=== PATIENT | male | born 1955 | race Caucasian/White ===

== ENCOUNTER 2018-10-20 09:50 | Inpatient (IN) | payer BC, SELFPAY ==
[~2018-10-20] VITALS: Ht 190.5 cm; Wt 146.5 kg
[2018-10-20] VITALS (9 sets, daily range): BP systolic 102–123; BP diastolic 61–79
[~2018-10-20 09:50] MED LIST: ALBU8.5H6 INH; ALLO300T PO; CHOL10003 PO; FERR325T14 PO; FLUT9.9S NS; HYDR-2761 PO; LISI-130 PO; METO25TA2 PO; MULT1TAB13 PO; NAPR-514 PO; OXYC1TAB15 PO; OXYC1TAB22 PO; WARF-31 PO; WARF-78 PO
[2018-10-20] MEDS ORDERED: LISI1TAB5 PO (10:50)
[2018-10-20] MEDS ORDERED: dilTIAZem IV PUSH 25 MG/5 ML VIAL IVP ONE (11:15)
[2018-10-20] MEDS ORDERED: dilTIAZem INJ 125 MG in IV DEXTROSE 5% 100ML 100 ML IV ONE (11:15)
[2018-10-20] MEDS ORDERED: ANTI-COAG MONITOR BY PHARMACY. MC PRN (11:30)
[2018-10-20 11:57] LABS: BASO # 0.1 x10^3/uL (0.0-0.2); BASO % 1 % (0-3); EOS # 0.1 x10^3/uL (0.0-0.7); EOS % 1 % (0-3); HEMATOCRIT 42.3 % (39.0-53.0); HEMOGLOBIN 14.8 g/dL (13.0-17.5); LYMPH # 1.8 x10^3/uL (1.0-4.8); LYMPH % 19 % (24-48); MEAN CORPUSCULAR HEMOGLOBIN 30 pg (25-35); MEAN CORPUSCULAR HGB CONC 35 g/dL (31-37); MEAN CORPUSCULAR VOLUME 86 fL (79-100); MONO # 0.8 x10^3/uL (0.0-1.1); MONO % 9 % (0-9); NEUT # 6.7 x10^3uL (1.8-7.7); NEUT % 70 % (31-73); PLATELET COUNT 325 x10^3/uL (140-400); RED BLOOD COUNT 4.91 x10^6/uL (4.30-5.70); RED CELL DISTRIBUTION WIDTH 13.6 % (11.5-14.5); WHITE BLOOD COUNT 9.6 x10^3/uL (4.0-11.0)
[2018-10-20 12:18] LABS: CALCIUM 9.9 mg/dL (8.5-10.1); POTASSIUM 4.8 mmol/L (3.5-5.1)
[2018-10-20] MEDS: APIXABAN 5 MG TABLET. PO SCH ×2 (13:07→20:47)
--- NOTE | 2018-10-20 14:01 | CARD ---
MR#: [id number] Date of Study: 10/20/2018 Ordering Physician: MIKEL PAYAN, Referring Physician: MIKEL PAYAN, Tech: Mary Lou Lacey APPROVED REPORT EXAM: Two-dimensional and M-mode echocardiogram with Doppler and color Doppler. Other Information Quality : AverageHR: 110bpm INDICATION Atrial Fibrillation Asthma RISK FACTORS Hypertension 2D DIMENSIONS RVDd3.4 (2.9-3.5cm)Left Atrium(2D)4.2 (1.6-4.0cm) IVSd1.4 (0.7-1.1cm)Aortic Root(2D)3.4 (2.0-3.7cm) LVDd4.8 (3.9-5.9cm)LVOT Diameter2.4 (1.8-2.4cm) PWd1.1 (0.7-1.1cm)LVDs3.0 (2.5-4.0cm) FS (%) 37.2 %SV72.0 ml LVEF(%)67.1 (>50%) Aortic Valve AoV Peak Bjorn.129.9cm/sAoV VTI18.0cm AO Peak GR.6.7mmHgLVOT Peak Bjorn.87.8cm/s LVOT VTI 14.10cmAO Mean GR.4mmHg MAKSIM (VMAX)2.79ax0MQY (VTI)3.63cm2 Mitral Valve MV E Szffsrwl08.2cm/sMV DECEL ZOCU201wp MV A Xmhpymoa04.0cm/sMV JZV94dr E/A Ratio2.4MVA (PHT)4.99cm2 TDI E/Lateral E'5.3E/Medial E'5.8 Pulmonary Valve PV Peak Bujjzilt06.7cm/sPV Peak Grad.3mmHg Tricuspid Valve TR P. Zqpqqvjn203dt/sRAP BWOCGECL9rpEi TR Peak Gr.00dbWeDKDN56ekIk Pulmonary Vein S1 Yrqhcpyl71.0cm/sD2 Maouudtu11.9cm/s PVa kxeomwct157jgte LEFT VENTRICLE The left ventricle is normal size. There is mild to moderate concentric left ventricular hypertrophy. The left ventricular systolic function is normal. The Ejection Fraction is 60%. There is normal LV s egmental wall motion. The left ventricular diastolic function and filling is normal for age. RIGHT VENTRICLE The right ventricle is normal size. There is normal right ventricular wall thickness. The right ventr icular systolic function is normal. ATRIA The left atrium is borderline dilated. The right atrium is mildly dilated. The interatrial septum is intact with no evidence for an atrial septal defect or patent foramen ovale as noted on 2-D or Dopple r imaging. AORTIC VALVE The aortic valve is normal in structure and function. Doppler and Color Flow revealed no significant aortic regurgitation. There is no significant aortic valvular stenosis. MITRAL VALVE The mitral valve is normal in structure and function. There is no evidence of mitral valve prolapse. There is no mitral valve stenosis. Doppler and Color-flow revealed trace mitral regurgitation. TRICUSPID VALVE The tricuspid valve is normal in structure and function. Doppler and Color Flow revealed trace tricus pid regurgitation with an estimated PAP of 28 mmHg. There is no tricuspid valve stenosis. PULMONIC VALVE The pulmonic valve is not well visualized. Doppler and Color Flow revealed trace pulmonic valvular re gurgitation. GREAT VESSELS The aortic root is normal in size. The IVC is normal in size and collapses >50% with inspiration. PERICARDIAL EFFUSION There is no evidence of significant pericardial effusion. Critical Notification Critical Value: No <Conclusion> The left ventricular systolic function is normal. The Ejection Fraction is 60%. There is normal LV segmental wall motion. Trace mitral regurgitation. Trace tricuspid regurgitation with an estimated PAP of 28 mmHg. There is no evidence of significant pericardial effusion. Signed by : Mikel Payan, Electronically Approved : 10/20/2018 14:00:33
--- NOTE | 2018-10-20 15:52 | PDOC ---
ROMAINE ADAIR APRN 10/20/18 1552: Provider Note Provider Note Please seen office noted in physical chart for further details HPI This is a 63 yo male who was was seen by Dr. Payan in office today as a refer ral for new AFIB. Was noted to be in AFIB with RVR and was admitted to the hospital for further workup and treatment. Patient dad been experiencing some occasional fatigue and dizziness upon standing and noted that his heart rate would frequently fluctuate on his Fit Bit. Primary care provider conducted EKG last week and noted patient to be in AFIB. Was initiated on metoprolol and Eliquis for stroke prevention. Patient denies ay shortness or breath, palpitations, chest pain, diaphoresis, LE edema, or nausea/vomiting. No recent illness or fevers. Assessment 1. AFIB with RVR 2. Hypertension 3. Valvular insufficiency; rheumatic fever as a child. Recommendations Routine labs Cardizem gtt. Titrate for HR control Resume Eliquis Hold Toprol and Norvasc for now Echo to assess LV systolic function Ischemic workup with stress test Outpatient cardioversion following 4 weeks of anticoagulation therapy. Further recommendations pending above MIKEL PAYAN MD 10/20/18 1641: Provider Note Provider Note Patient seen and examined. Agree with SINGEING TORCH OPERATOR's assessment and plan. Please see my office note from earlier today for full H&P Continue to titrate Cardizem drip for better rate control and change to by mouth tomorrow Continue eliquis for stroke prophylaxis 2-D echo showed normal LV systolic function Plan for outpatient cardioversion in 3-4 weeks We will also schedule patient for outpatient Lexiscan nuclear stress test and sleep study Possible discharge home tomorrow ROMAINE ADAIR APRN October 20, 2018 15:52 MIKEL PAYAN MD October 20, 2018 16:41
--- NOTE | 2018-10-20 20:48 | NUR ---
Patient is new admit today prior to shift change. Patient reports he had a dose of Eliquis this morning prior to coming to hospital today. Day shift RN gave dose of Eliquis on admit to hospital. Patient has had 2 doses of Eliquis today already so I did not administer 2100 dose of Eliquis this evening. Next dose of Eliquis scheduled bid is 10/21 0900.
[2018-10-20] MEDS: dilTIAZem INJ 125 MG in IV DEXTROSE 5% 100ML 100 ML IV PRN (23:10)
[2018-10-21] VITALS (20 sets, daily range): BP systolic 105–145; BP diastolic 67–88
[2018-10-21] MEDS: APIXABAN 5 MG TABLET. PO SCH (08:49)
[2018-10-21] MEDS: dilTIAZem INJ 125 MG in IV DEXTROSE 5% 100ML 100 ML IV PRN (11:32)
--- NOTE | 2018-10-21 12:16 | PDOC ---
CARDIO Progress Notes Date and Time Date of Service 10/21/18 Time of Evaluation 1051 Subjective Subjective: No Chest Pain, No shortness of breath, No Palpitations Vitals Vitals Vital Signs Date Time Temp Pulse Resp B/P (MAP) Pulse Ox O2 Delivery O2 Flow Rate FiO2 10/21/18 11:00 98.0 88 18 124/70 (88) 97 Room Air 98.0 Weight Weight [ ] Input and Output Intake and Output Intake and Output 10/21/18 06:59 Intake Total 925 ml Balance 925 ml Intake Oral 800 ml IV Total 125 ml # Voids 2 Laboratory Labs Laboratory Tests Test 10/20/18 17:15 10/20/18 21:15 Troponin I Quantitative < 0.017 ng/mL (0.000-0.055) < 0.017 ng/mL (0.000-0.055) Physical Exam HEENT: Neck Supple W Full Motion Chest: Symmetric LUNGS: Clear to Auscultation Heart: S1S2, irregularly irregular Abdomen: Soft N/T Extremities: No Edema Neurology: alert, oriented Assessment Assessment 1. AFIB with RVR; rate better controlled with Cardizem gtt. Echo with preserved LV systolic function 2. Hypertension; controlled Recommendations Covert Cardizem to oral Eliquis for stroke prevention Will arrange for outpatient stress test and sleep study Outpatient cardioversion in 3-4 weeks Monitor rhythm; if remains controlled, consider discharge later this evening ROMAINE ADAIR APRN October 21, 2018 12:16
--- NOTE | 2018-10-21 15:46 | NUR ---
SS following up with discharge planning. SS reviewed pt chart. Pt is from home with spouse and is currently on room air. No discharge needs noted at this time. SS will continue to follow for discharge planning.
[2018-10-21] MEDS ORDERED: APIX5TAB PO (16:03)
[2018-10-21] MEDS ORDERED: DILT300C24 PO (16:03)
--- NOTE | 2018-10-21 16:06 | DISCH ---
DISCHARGE INSTRUCTIONS Condition on Discharge Condition on Discharge: Stable Activity After Discharge Activity Instructions for Disc: Activity as tolerated Weight Bearing Status after Di: No restrictions Diet after Discharge Diet after Discharge: Cardiac Checks after Discharge Checks after discharge: Check blood press - daily Contacting the DRSaniya after DC Call your doctor for: Concerns you may have Treatment/Equipment after DC Adaptive Equipment Issued: None ROMAINE ADAIR APRN October 21, 2018 16:06
[2018-10-21 16:13] LABS: CHOLESTEROL/HDL RATIO 5.6
--- NOTE | 2018-10-21 16:15 | PDOC3 ---
Discharge Summary Visit Information Date of Admission: October 20, 2018 Date of Discharge: October 21, 2018 Admitting Diagnosis Comment: AFIB with RVR Hypertension Final Diagnosis AFIB with RVR Hypertension Brief Hospital Course Allergies Allergies Coded Allergies Type Severity Reaction Last Updated Verified No Known Drug Allergies 05/11/15 No Vital Signs Vital Signs Date Time Temp Pulse Resp B/P (MAP) Pulse Ox O2 Delivery O2 Flow Rate FiO2 10/21/18 15:00 97.8 87 14 116/76 (89) 97 Room Air 97.8 Lab Results Laboratory Tests Test 10/20/18 11:40 10/20/18 17:15 10/20/18 21:15 White Blood Count 9.6 x10^3/uL (4.0-11.0) Red Blood Count 4.91 x10^6/uL (4.30-5.70) Hemoglobin 14.8 g/dL (13.0-17.5) Hematocrit 42.3 % (39.0-53.0) Mean Corpuscular Volume 86 fL (79-100) Mean Corpuscular Hemoglobin 30 pg (25-35) Mean Corpuscular Hemoglobin Concent 35 g/dL (31-37) Red Cell Distribution Width 13.6 % (11.5-14.5) Platelet Count 325 x10^3/uL (140-400) Neutrophils (%) (Auto) 70 % (31-73) Lymphocytes (%) (Auto) 19 % (24-48) Monocytes (%) (Auto) 9 % (0-9) Eosinophils (%) (Auto) 1 % (0-3) Basophils (%) (Auto) 1 % (0-3) Neutrophils # (Auto) 6.7 x10^3uL (1.8-7.7) Lymphocytes # (Auto) 1.8 x10^3/uL (1.0-4.8) Monocytes # (Auto) 0.8 x10^3/uL (0.0-1.1) Eosinophils # (Auto) 0.1 x10^3/uL (0.0-0.7) Basophils # (Auto) 0.1 x10^3/uL (0.0-0.2) Sodium Level 143 mmol/L (136-145) Potassium Level 4.8 mmol/L (3.5-5.1) Chloride Level 104 mmol/L (98-107) Carbon Dioxide Level 28 mmol/L (21-32) Anion Gap 11 (6-14) Blood Urea Nitrogen 16 mg/dL (8-26) Creatinine 1.0 mg/dL (0.7-1.3) Estimated GFR (Cockcroft-Gault) 76.0 Glucose Level 112 mg/dL (70-99) Calcium Level 9.9 mg/dL (8.5-10.1) Troponin I Quantitative < 0.017 ng/mL (0.000-0.055) < 0.017 ng/mL (0.000-0.055) < 0.017 ng/mL (0.000-0.055) Thyroid Stimulating Hormone (TSH) 0.950 uIU/mL (0.358-3.74) Laboratory Tests Test 10/20/18 17:15 10/20/18 21:15 Troponin I Quantitative < 0.017 ng/mL (0.000-0.055) < 0.017 ng/mL (0.000-0.055) Brief Hospital Course Mr. Guevara is a 63 old male who presented with secondary to AFIB with RVR. Patient reported occasional fatigue and dizziness upon standing and noted that his heart rate would frequently fluctuate on his Fit Bit. Primary care provider conducted EKG last week and noted patient to be in AFIB. Was initiated on metoprolol and Eliquis for stroke prevention. Was seen in clinic by Dr. Payan yesterday as a referral for new onset AFIB. Was noted to be in AFIB with RVR and was admitted to the hospital for further workup and treatment. Cardizem gtt was initiated for heart rate control. Eliquis resumed for stroke prevention. Echocardiogram showed preserved LV systolic function with an EF of 60%. No wall motion abnormalities or significant valvular insufficiency. Patient's rate has been controlled and was converted to oral Cardizem. Outpatient stress test and sleep study has been arranged. Will plan for outpatient cardioversion in 3-4 weeks. Will discharge home on Eliquis 5mg BID and Cardizem CD 300mg daily. Patient seen and examined. Agree with above nurse practitioner note. Plan for outpatient cardioversion. Supportive care. Doing well overall. Heart rate well- controlled. Discharge Information Condition at Discharge: Improved Follow Up: Weeks (4) Disposition/Orders: D/C to Home Scheduled Albuterol Sulfate (Albuterol Sulfate Hfa Inhaler) 8.5 Gm Hfa.aer.ad, 2 PUFF INH Q4HRS for FOR ASTHMA, Ref 0 (Reported) Not given this hospitalization. May resume at home as ordered by doctor. Entered as Reported by: ONIEL BLAIR on 01/09/15618 Last Action: Reviewed on 10/20/18 105 by MARTINA BOWSER RN Allopurinol (Allopurinol) 300 Mg Tablet, 1 TAB PO DAILY for gout, #30 Ref 5 (Reported) LAST DOSE GIVEN: DATE: 05/11 TIME: 9 am NEXT DOSE DUE: DATE: 05/12 TIME: 9 am Entered as Reported by: ONIEL BLAIR on 01/09/15618 Last Action: Reviewed on 10/20/18 105 by MARTINA BOWSER RN Apixaban (Eliquis) 5 Mg Tablet, 5 MG PO BID for AFIB for 30 Days, #60 Ref 2 Prescribed by: ROMAINE ADAIR APRN on 10/21/18 1603 Diltiazem HCl (Diltiazem 24Hr ER (Cd)) 300 Mg Cap.er.24h, 300 MG PO DAILY for AFIB for 30 Days, #30 Ref 2 Prescribed by: ROMAINE ADAIR APRN on 10/21/18 1603 Multivitamin W-Minerals/Lutein (Centrum Silver Ultra Men's Tab) 1 Each Tablet, 1 EACH PO DAILY, (Reported) LAST DOSE GIVEN: DATE: 05/11 TIME: 9 AM NEXT DOSE DUE: DATE: 05/12 TIME: 9 AM Entered as Reported by: CATHERINE ROPER on 04/16/15 1132 Last Action: Reviewed on 10/20/18 105 by MARTINA BOWSER RN Miscellaneous Medications Cholecalciferol (Vitamin D3) (Vitamin D3) 1,000 Unit Tablet, 2,000 UNIT PO, (Reported) LAST DOSE GIVEN: DATE: 05/11 TIME: BEFORE DISCHARGE NEXT DOSE DUE: DATE: 05/12 TIME: MORNING Entered as Reported by: CATHERINE ROPER on 04/16/15 1131 Last Action: Reviewed on 10/20/18 105 by MARTINA BOWSER RN Discontinued Medications Lisinopril/Hydrochlorothiazide (Lisinopril-Hctz 20-12.5 Mg Tab) 1 Each Tablet, 1 TAB PO DAILY for HTN, #30 Ref 5 (Reported) Entered as Reported by: MRATINA BOWSER RN on 10/20/18 1050 Last Taken: Unknown Dose on 10/20/18 0700 Last Action: Reviewed on 10/20/18 1056 by RADHA DE LEON EMILY APRN October 21, 2018 16:15 JADA KOVACS MD October 21, 2018 17:15
--- NOTE | 2018-10-21 17:20 | NUR ---
Discharge Note: VICTORIANO MONTEIRO [place] Discharge instructions and discharge home medications reviewed with Patient and a copy given. All questions have been answered and understanding verbalized. Follow up appointments and instructions given to patient. The following instructions and handouts were given: Atrial fibrillation and Diltiazem Discontinued lines and drains: Peripheral IV intact. Patient discharged to Home with Spouse via Ambulated
== END 2018-10-21 17:20 | disposition home or self-care (01) | DRG 310 ==
LOC: 2 NORTH 10:00
PROVIDERS: ADMIT Internal Medicine Cardiovascular Disease; ATTEND Internal Medicine Cardiovascular Disease
DX: I48.91 Unspecified atrial fibrillation (principal); I10 Essential (primary) hypertension; Z79.899 Other long term (current) drug therapy; I09.1 Rheumatic diseases of endocardium, valve unspecified
CPT/HCPCS: 36415; 80048; 80061; 84443; 84484; 85025; 93306; J3490

== ENCOUNTER 2018-11-11 06:01 | Day surgery (SDC) | payer BC ==
[~2018-11-11 06:01] MED LIST changes: +APIX5TAB PO; +DILT300C24 PO; +LISI1TAB5 PO
--- NOTE | 2018-11-11 06:32 | EKG ---
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
[2018-11-11] MEDS ORDERED: IV RINGERS,LACTATED 1000ML 1,000 ML IV SCH ×2 (07:00)
[2018-11-11] MEDS ORDERED: fentaNYL PF VIAL 100 MCG/2 ML VIAL IV PRN ×4 (07:00)
[2018-11-11] MEDS ORDERED: LIDOCAINE 1% PF 2 ML VIAL. ID PRN ×2 (07:00)
[2018-11-11] MEDS ORDERED: MORPHINE SULFATE 2 MG/ML VIAL. IV PRN ×2 (07:00)
[2018-11-11] MEDS ORDERED: HYDROmorphone 2 MG/ML VIAL IV PRN ×2 (07:00)
[2018-11-11] MEDS ORDERED: PROCHLORPERAZINE 10 MG/2 ML VIAL. IV PRN ×2 (07:00)
[2018-11-11] MEDS ORDERED: ONDANSETRON PF 4 MG/2 ML VIAL. IV PRN ×2 (07:00)
[2018-11-11] MEDS ORDERED: PROPOFOL 20 ML IV ONE (07:22)
--- NOTE | 2018-11-11 08:05 | EKG ---
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
[2018-11-11 08:45] VITALS: BP 120/95
--- NOTE | 2018-11-11 09:18 | PDOC4 ---
PROCEDURE Procedure CARDIOVERSION: DETAILS: 63-year-old man presented to the hospital for a planned outpatient cardioversion. He was seen in the office approximately 4 weeks ago and he was started on anticoagulation. Currently denies any chest pain symptoms. Risks, benefits and alternatives were discussed with the patient and informed consent was obtained. Procedural details: The patient was sedated with anesthesia and propofol was administered. See anesthesia notes for full details. A synchronized cardioversion was performed with 360 J and the patient converted to sinus rhythm. Postconversion the heart rate was in the 90s. The patient tolerated the procedure well and awoke from anesthesia without any complications. Patient and family updated post- procedurally. He was discharged in stable condition. He has follow-up in our office in 4 weeks. Continue anticoagulation. CONCLUSION: 1. Successful cardioversion to SR. JADA KOVACS MD Nov 11, 2018 09:18
== END 2018-11-11 09:01 | disposition home or self-care (01) ==
LOC: SURG 06:01
PROVIDERS: ATTEND Internal Medicine Cardiovascular Disease
DX: I48.91 Unspecified atrial fibrillation (principal)
CPT/HCPCS: 92960; 93005; J2704

== ENCOUNTER → 2018-11-15 | Outpatient (CLI) | payer BC ==
[2018-11-11 08:45] VITALS: BP 120/95
[~2018-11-15] MED LIST changes: +REGADENOSON 0.4 MG/5 ML DISP.SYRIN. IV ONE
--- NOTE | 2018-11-16 11:43 | RAD ---
MR#: [id number] Date of Study: 11/16/2018 Ordering Physician: MIKEL DUVALL, Referring Physician: ROEL ZULETA Tech: TONY Olivas, ROSIE (R) (N) APPROVED REPORT Test Type: Exercise Stress Nurse/Tech: Eugenia Bryan RN Test Indications: A-fib Cardiac History: Hypertension Medications: See Electronic Medical Record Medical History: See Electronic Medical Record Resting ECG: A-fib Resting Heart Rate: 91 bpm Resting Blood Pressure: 144/86mmHg Pretest Chest Pain: No chest pain Nurse/Tech Notes S1,S2 and lungs clear to auscultation. Consent: The procedure was explained to the patient in lay terms. Informed consent was witnessed. Guy eout was entered into [employer]. History and Stress Test performed by RT Elaine (R) (N) Stress Symptoms Dyspnea,Fatigue,diaphoretic POST EXERCISE Reason for Termination: Reached target heart rate Target HR: Yes Max HR: 189 bpm 140% of Maximum Predicted HR: 135 bpm Exercise duration: 5:38 min:sec, 2 Stage Exercise capacity: 7.0METs Max Blood Pressure: 146/78mmHg Blood Pressure response to exercise: Normal blood pressure response during stress. Heart Rate response to exercise: WNL Chest Pain: No. Arrhythmia: No. ST Change: Yes. non-specific st depression INTERPRETATION Stress EKG Conclusion: Non-specific ST/T changes. No significant ischemia noted. Imaging Protocol IMAGE PROTOCOL: Rest Tc-99m/stress Tc-99m 2 days Rest: Stress: Viability: Radiopharm.Tc99m RaddknkkwJp38a Sestamibi Yake01vAh 37mCi Img Date 11/15/2018 11/16/2018 Inj-Img Dlvd02mzd. 60min. Rest Admin Site:IV - Left HandAdministrator:TONY Olivas, ROSIE (R)(N) Stress Admin Site: IV - Right HandAdministrator: RT Kalani Henry)(N) STRESS DATA End Diast. Vol.70.0mlLVEDV index BSA27.0ml End Syst. Vol.24.0mlLVESV index BSA9.0ml Myocardial Xsro012.0gEject. Jwfmohlj67.0% Stress Scores Regional WT1.00Summed WT7.00 Regional WM0.00Summed WM3.00 The rest and stress images show normal perfusion, normal contraction and thickening. LV Perf. Quant 17 Seg. SSS0.00 17 Seg. SRS0.00 17 Seg. SDS0.00 Stress Defect Extent (% LAD)0.00Rest Defect Extent (% LAD)0.00Rev. Defect Extent (% LAD)0.00 Stress Defect Extent (% LCX) 0.00Rest Defect Extent (% LCX)0.00Rev. Defect Extent (% LCX)0.00 Stress Defect Extent (% RCA)0.00Rest Defect Extent (% RCA)0.00Rev. Defect Extent (% RCA)0.00 Stress Defect Extent (% REY)0.00Rest Defect Extent (% REY)0.00Rev. Defect Extent (% REY)0.00 Other Information Quality:Fair Risk Assessment: Low Risk Conclusion 1. No evidence of EKG changes with stress testing. 2. Normal perfusion at stress/rest. There is likely a subdiaphragmatic attenuation artifact noted but cannot rule out prior inferior infarct. Based on normal wall motion and lack of any significant Q wa ves on EKG, this is most consistent with an artifact. 3. Low risk study. 4. EF > 60%. Signed by : Jaun Srinivasan, Electronically Approved : 11/16/2018 11:43:11
== END | disposition home or self-care (01) ==
LOC: NM 07:47
PROVIDERS: ATTEND Internal Medicine Cardiovascular Disease
DX: I21.3 ST elevation (STEMI) myocardial infarction of unspecified site (principal); I48.91 Unspecified atrial fibrillation; I10 Essential (primary) hypertension; R06.00 Dyspnea, unspecified; R53.83 Other fatigue; R61 Generalized hyperhidrosis
CPT/HCPCS: 78452; A9500; 93017; 96376

== ENCOUNTER → 2018-12-21 | Outpatient (CLI) | payer BC ==
[~2018-12-21] MED LIST changes: -REGADENOSON 0.4 MG/5 ML DISP.SYRIN. IV ONE
--- NOTE | 2018-12-22 12:24 | SLEEP ---
DATE OF STUDY: 12/21/2018 ATTENDING PHYSICIAN: Dr. Manjeet Smart. REFERRING PHYSICIAN: Dr. Damian Fry. HISTORY: The patient is 63 years old who weighs 310 pounds with a BMI of 39. The patient's [place] score was 8. The patient underwent split night study performed at [facility]. During the night study, the patient spent 432 minutes in bed and slept for 326 minutes with a sleep efficiency of 75%. Sleep latency was 9 minutes with a REM latency of 77 minutes. Overall, sleep architecture showed increased stage 1 sleep, normal stage 2 sleep, normal slow wave and increased REM sleep, which was 30% of total sleep time. During the initial diagnostic portion of the study, the patient slept for 136 minutes. During that time, there were 83 obstructive apneas, 25 mixed apneas, no central apneas and 46 hypopneas. The patient's apnea-hypopnea index was 68 per hour with a REM index of 62 per hour. Supine sleep was not observed. EKG monitoring revealed average heart rate of 80 beats per minute, no sustained arrhythmias observed. Nocturnal oximetry study revealed a mean oxygen saturation of 92% with the lowest of 63%, 25% of time oxygen saturation remained between 80% and 89% and 17% of time between 70% and 79%. PLMs were seen at index of 38 per hour and 3 per hour caused EEG arousals. The patient met the criteria for CPAP initiation. He was started at 7 cm water and titrated up to 12 cm water. At the final pressure, the patient slept for 144 minutes. The patient had long REM sleep and lateral sleep. No supine sleep. The patient's AHI was reduced to 2 per hour and oxygen saturations remained above 90% with one spot desaturation of 87%. The patient used a medium size full face mask. IMPRESSION: 1. Severe sleep apnea-hypopnea syndrome at an AHI of 68 per hour. 2. Nocturnal hypoxia secondary [place]VAD[place], but resolved with CPAP. 3. Moderate periodic limb movements. RECOMMENDATION: 1. CPAP at 12 cm water completely eliminated the patient's sleep apnea and should be used on a nightly basis. 2. Follow up in 4-6 weeks to assess compliance with CPAP and to document clinical improvement. 3. Weight loss is strongly advised. 4. Avoid FOOD AND NUTRITION SERVICES ASSISTANT depressants. 5. Cautioned regarding driving until symptoms of sleep apnea resolves with the use of CPAP. 6. The PLMs does not need to be treated unless the patient has symptoms of restless legs during the day. CINTHYA PEREZ MD DR: KEATON/lisa JOB#: [id number] / [id number]
== END | disposition home or self-care (01) ==
LOC: SLPLAB 19:00
PROVIDERS: ATTEND Internal Medicine Pulmonary Disease
DX: G47.33 Obstructive sleep apnea (adult) (pediatric) (principal); G47.34 Idiopathic sleep related nonobstructive alveolar hypoventilation; R06.83 Snoring; I48.91 Unspecified atrial fibrillation
CPT/HCPCS: 95810

== ENCOUNTER → 2019-11-29 | Outpatient (CLI) | payer BC ==
[~2019-11-29] MED LIST changes: +LISI1TAB19 PO; -LISI1TAB5 PO; -WARF-78 PO; +WARF5TAB2 PO
--- NOTE | 2019-11-29 16:29 | CARD ---
MR#: [id number] Date of Study: 11/29/2019 Ordering Physician: MIKEL DUVALL, Referring Physician: MIKEL DUVALL, Tech: Mary Lou Lacey APPROVED REPORT EXAM: Two-dimensional and M-mode echocardiogram with Doppler and color Doppler. Other Information Quality : AverageHR: 74bpm Technically limited study due to body habitus. INDICATION Atrial Fibrillation RISK FACTORS Hypertension 2D DIMENSIONS Left Atrium(2D)4.3 (1.6-4.0cm)IVSd1.3 (0.7-1.1cm) Aortic Root(2D)3.5 (2.0-3.7cm)LVDd5.2 (3.9-5.9cm) LVOT Diameter2.2 (1.8-2.4cm)PWd1.1 (0.7-1.1cm) LVDs3.2 (2.5-4.0cm)FS (%) 39.0 % SV90.2 mlLVEF(%)69.1 (>50%) Aortic Valve AoV Peak Bjorn.168.9cm/sAoV VTI27.3cm AO Peak GR.11.4mmHgLVOT Peak Bjorn.115.1cm/s LVOT VTI 19.18cmAO Mean GR.6mmHg MAKSIM (VMAX)1.28gj6GDC (VTI)2.79cm2 Mitral Valve MV E Ujobfpvw43.1cm/sMV DECEL IFUH533ab MV A Nvydjtwz85.6cm/sMV E Mean Gr.1mmHg MV JAG38qtD/A Ratio1.0 MVA (PHT)3.21cm2 TDI E/Lateral E'6.8E/Medial E'5.6 Pulmonary Valve PV Peak Qzicfoid967.1cm/sPV Peak Grad.5mmHg Tricuspid Valve TR P. Jfccvasc688kb/sRAP ZEJYDBUB8kzKb TR Peak Gr.76saEoTFNB89qmWu LEFT VENTRICLE The left ventricle is normal size. There is mild to moderate concentric left ventricular hypertrophy. The left ventricular systolic function is normal and the ejection fraction is within normal range. T he Ejection Fraction is 55%. There is normal LV segmental wall motion. Transmitral Doppler flow patte rn is Grade I-abnormal relaxation pattern. RIGHT VENTRICLE The right ventricle is normal size. There is normal right ventricular wall thickness. The right ventr icular systolic function is normal. ATRIA The left atrium size is normal. The right atrium size is normal. The interatrial septum is intact wit h no evidence for an atrial septal defect or patent foramen ovale as noted on 2-D or Doppler imaging. AORTIC VALVE The aortic valve is normal in structure and function. Doppler and Color Flow revealed no significant aortic regurgitation. There is no significant aortic valvular stenosis. Calculated aortic valve area is 3.12 cm2 with maximum pressure gradient of 10 mmHg and mean pressure gradient of 5 mmHg. MITRAL VALVE The mitral valve is normal in structure and function. There is no evidence of mitral valve prolapse. There is no mitral valve stenosis. Doppler and Color-flow revealed trace mitral regurgitation. TRICUSPID VALVE The tricuspid valve is normal in structure and function. Doppler and Color Flow revealed trace tricus pid regurgitation with an estimated PAP of 34 mmHg. There is no tricuspid valve stenosis. PULMONIC VALVE The pulmonic valve is not well visualized. Doppler and Color Flow revealed trace pulmonic valvular re gurgitation. There is no pulmonic valvular stenosis. GREAT VESSELS The aortic root is normal in size. The IVC is normal in size and collapses >50% with inspiration. PERICARDIAL EFFUSION There is no evidence of significant pericardial effusion. Critical Notification Critical Value: No <Conclusion> The left ventricular systolic function is normal and the ejection fraction is within normal range. Th e Ejection Fraction is 55%. There is normal LV segmental wall motion. Signed by : Jaun Srinivasan, Electronically Approved : 11/29/2019 16:28:45
== END | disposition home or self-care (01) ==
LOC: ECHO 12:51
PROVIDERS: ATTEND Internal Medicine Cardiovascular Disease
DX: I51.7 Cardiomegaly (principal); I48.0 Paroxysmal atrial fibrillation
CPT/HCPCS: 93306

== ENCOUNTER → 2021-06-05 | Outpatient (CLI) | payer BC ==
[~2021-06-05] MED LIST changes: -LISI1TAB19 PO; +LISI1TAB37 PO; +PERFLUTREN PROTEIN-A MICROSPHR 0.22 MG/ML 3 ML VIAL. IV ONE
--- NOTE | 2021-06-05 12:37 | CARD ---
MR#: [id number] Date of Study: 06/05/2021 Ordering Physician: MIKEL DUVALL, Referring Physician: MIKEL DUVALL Tech: Netta Owusu KIRK APPROVED REPORT EXAM: Two-dimensional and M-mode echocardiogram with Doppler and color Doppler. Other Information Quality : Technically LimitedHR: 59bpm Rhythm : NSR INDICATION Cardiac Disease: CAD Echo Enhancing Agent Indication: Endocardial border delineation Agent/Amount Used: Optison 3mL RISK FACTORS Hypertension Obesity Hyperlipidemia 2D DIMENSIONS RVDd3.2 (2.9-3.5cm)Left Atrium(2D)4.7 (1.6-4.0cm) IVSd1.3 (0.7-1.1cm)Aortic Root(2D)3.7 (2.0-3.7cm) LVDd4.6 (3.9-5.9cm)LVOT Diameter2.3 (1.8-2.4cm) PWd1.3 (0.7-1.1cm)LVDs2.3 (2.5-4.0cm) FS (%) 50.4 %SV78.3 ml LVEF(%)81.8 (>50%) Aortic Valve AoV Peak Bjorn.173.6cm/sAoV VTI33.6cm AO Peak GR.12.0mmHgLVOT Peak Bjorn.135.9cm/s AO Mean GR.6mmHgAVA (VMAX)3.35cm2 Mitral Valve MV E Mjyikygr78.8cm/sMV DECEL BJBZ222yg MV A Fioghxtt062.3cm/sE/A Ratio0.7 MVA Dwdlmygefm26.96cm2 Pulmonary Valve PV Peak Faphebtn483.9cm/s Tricuspid Valve TR P. Orvbqaai728ml/sTR Peak Gr.30mmHg LEFT VENTRICLE The left ventricle is normal size. There is mild concentric left ventricular hypertrophy. The left ve ntricular systolic function is normal. Estimated ejection fraction 65-70%. There is normal LV segmen laurence wall motion. Transmitral Doppler flow pattern is Grade I-abnormal relaxation pattern. RIGHT VENTRICLE The right ventricle is normal size. There is normal right ventricular wall thickness. The right ventr icular systolic function is normal. ATRIA The left atrium size is normal. The right atrium size is normal. The interatrial septum is intact wit h no evidence for an atrial septal defect or patent foramen ovale as noted on 2-D or Doppler imaging. AORTIC VALVE The aortic valve is normal in structure and function. Doppler and Color Flow revealed no significant aortic regurgitation. There is no significant aortic valvular stenosis. MITRAL VALVE The mitral valve is normal in structure and function. There is no evidence of mitral valve prolapse. There is no mitral valve stenosis. Doppler and Color-flow revealed trace mitral regurgitation. TRICUSPID VALVE The tricuspid valve is normal in structure and function. Doppler and Color Flow revealed trace tricus pid regurgitation. Estimated PAP 30 mmHg. There is no tricuspid valve stenosis. PULMONIC VALVE The pulmonary valve is normal in structure and function. Doppler and Color Flow revealed trace pulmon ic valvular regurgitation. GREAT VESSELS The aortic root is mildly enlarged. The ascending aorta is Mildly dilated. The IVC is normal in size and collapses >50% with inspiration. PERICARDIAL EFFUSION There is no evidence of significant pericardial effusion. Critical Notification Critical Value: No <Conclusion> The left ventricular systolic function is normal. Estimated ejection fraction 65-70%. There is normal LV segmental wall motion. Transmitral Doppler flow pattern is Grade I-abnormal relaxation pattern. Trace mitral regurgitation. Trace tricuspid regurgitation. Estimated PAP 30 mmHg. There is no evidence of significant pericardial effusion. Signed by : Mikel Duvall, Electronically Approved : 06/05/2021 12:37:07
== END ==
LOC: ECHO 09:40
PROVIDERS: ATTEND Internal Medicine Cardiovascular Disease
DX: I77.810 Thoracic aortic ectasia (principal); I48.0 Paroxysmal atrial fibrillation; I51.7 Cardiomegaly; I25.10 Atherosclerotic heart disease of native coronary artery without angina pectoris
CPT/HCPCS: C8929; Q9956